=== PATIENT | male | born 1995 | race American Indian/Alaskan Native ===

== ENCOUNTER 2017-06-20 20:18 | Emergency (ER) | payer MEDICAID ==
[2017-06-20 20:18] VITALS: BMI 27.3
[2017-06-20 20:32] VITALS: BP 114/84; PULSE 76; RESP 20; TEMP 98.4; O2SAT 99
[2017-06-20] MEDS ORDERED: Promethazine/Cod 6.25mg-10mg/5ml Syr UD PO STA (21:16)
[2017-06-20] MEDS ORDERED: Amoxicillin-Clav 875-125 mg Tab PO STA (21:16)
--- NOTE | 2017-06-20 21:18 | C.PDOC ---
History Of Present Illness 22 yr old male presents to the ER for evaluation of nasal congestion, sore throat, productive cough with white sputum and chills for the past 2 days. Patient denies fever, headache, drooling, dyspnea, chest pain, SOB, wheezing, abd. pain, N/V/D, UTi sx, denies recent travel or known sick contact. Ambulate to ED for evaluation, not in any apparent distress. Time Seen by Provider: 06/20/17 20:36 Chief Complaint (Nursing): ENT Problem History Per: Patient History/Exam Limitations: None Onset/Duration Of Symptoms: Days (2) Severity: None Past Medical History Reviewed: Historical Data, Nursing Documentation, Vital Signs Vital Signs: Last Vital Signs Temp 98.4 F 06/20/17 20:28 Pulse 76 06/20/17 20:28 Resp 20 06/20/17 20:28 BP 114/84 06/20/17 20:28 Pulse Ox 99 06/20/17 21:30 Family History: States: No Known Family Hx - Social History Hx Tobacco Use: Yes Hx Alcohol Use: Yes Hx Substance Use: Yes - Immunization History Hx Tetanus Toxoid Vaccination: No Hx Influenza Vaccination: No Hx Pneumococcal Vaccination: No Review Of Systems Except As Marked, All Systems Reviewed And Found Negative. Constitutional: Positive for: Chills. Negative for: Fever ENT: Positive for: Nose Congestion, Throat Pain (Sore throat ) Cardiovascular: Negative for: Chest Pain Respiratory: Positive for: Cough (Productive ), Sputum (White ). Negative for: Shortness of Breath Neurological: Negative for: Headache, Dizziness Physical Exam - Physical Exam Appears: Well, Non-toxic, No Acute Distress Skin: Normal Color, Warm, Dry, No Rash Eye(s): bilateral: PERRL Nose: No Flaring, Discharge (B/L nasal congestion with clear rhinorhea) Oral Mucosa: Moist, No Drooling, No Trismus Throat: Erythema (B/L), Exudate (B/L with tonsillar edema.), No Drooling, Other (uvula midline, no edema.) Neck: Supple, Other ((-) meningeal sign) Cardiovascular: Rhythm Regular Respiratory: No Decreased Breath Sounds, No Accessory Muscle Use, No Rales, No Rhonchi, No Stridor, No Wheezing Gastrointestinal/Abdominal: Soft, No Tenderness Back: No CVA Tenderness Extremity: No Pedal Edema Neurological/Psych: Oriented x3, Normal Speech ED Course And Treatment O2 Sat by Pulse Oximetry: 99 (RA) Pulse Ox Interpretation: Normal Progress Note: On re-evaluation, pt is afebrile, hemodynamicaly stable. non- toxic. Tolerate po well in ED. PulseOx 99% RA. ENT: findings c/w acute tonsillitis. uvula midline, no edema.No drooling, no trismus. Neck: supple, (- ) meningeal sign. Lugs: CTA B/L, BS equal B/L. ABd: benign. neuorlogicaly intact. Parent advised and ref. to f/U with PMD in 1-2 days for re-evaluation. return to ED if any worsening or new changes. Medical Decision Making Medical Decision Making: PLAN: * Augmentin PO * Phnergan PO * Prednisone PO Disposition Counseled Patient/Family Regarding: Diagnosis, Need For Followup, Rx Given - Disposition Referrals: Juan Wong MD [Staff Provider] - Disposition: HOME/ ROUTINE Disposition Time: 21:17 Condition: STABLE Additional Instructions: Encourage fluids Take medication as prescribed Follow up with PMD in 2-3 days for re-evaluation. return to Ed if any worsening or new changes. Prescriptions: Amoxicillin/Clavulanate [Augmentin 875 MG-125 MG] 1 tab PO BID #14 tab Benzonatate [Tessalon Perle] 100 mg PO TID #14 capsule Prednisone [Deltasone] 20 mg PO DAILY #3 tablet Instructions: Pharyngitis (ED) Forms: [facility] (Malaysian), Work Excuse - Clinical Impression Clinical Impression: Pharyngitis - PA / PULP MIXER / Resident Statement MD/DO has reviewed & agrees with the documentation as recorded. - Scribe Statement The provider has reviewed the documentation as recorded by the Scribe Winsome Washington All medical record entries made by the Scribe were at my direction and personally dictated by me. I have reviewed the chart and agree that the record accurately reflects my personal performance of the history, physical exam, medical decision making, and the department course for this patient. I have also personally directed, reviewed, and agree with the discharge instructions and disposition.
[2017-06-20] MEDS ORDERED: Amoxicillin-Clav 875-125 mg Tab PO ONE (21:20)
[2017-06-20] MEDS ORDERED: Promethazine/Cod 6.25mg-10mg/5ml Syr UD ONE (21:23)
== END 2017-06-20 21:48 | disposition home or self-care (01) ==
LOC: C.ER 20:18
DX: J02.9 Acute pharyngitis, unspecified (principal)

== ENCOUNTER 2017-07-06 03:14 | Emergency (ER) | payer BC, MEDICAID ==
[2017-07-06 03:14] VITALS: BMI 27.3
[2017-07-06 03:23] VITALS: BP 130/77; PULSE 86; RESP 20; TEMP 97.7; O2SAT 100
[2017-07-06] MEDS ORDERED: Albuterol-Ipratrop 3 mg / 0.5 (3 ml) UD ONE (03:41)
[2017-07-06] MEDS: Albuterol-Ipratrop 3 mg / 0.5 (3 ml) UD IH SCH ×2 (03:50→04:00)
--- NOTE | 2017-07-06 03:56 | C.PDOC ---
History Of Present Illness 22 y/o male c/o intermittent cough, chest congestion, and headache for the past 2 weeks. Patient was seen here 2 weeks prior and was placed on antibiotics and cough medicine. Patient notes symptoms improved, but has reoccurred a week ago. Patient went to see his PMD a week ago who ordered a CXR with normal results. Patient reports cough has now worsened at home with yellowish phlegm and chest tightness. Denies fever, chills, chest pain, ear pain, sick contact, recent travel, OTC meds, or any other complaints. Patient has not taken any meds at this time. Time Seen by Provider: 07/06/17 03:27 Chief Complaint (Nursing): Cough, Cold, Congestion History Per: Patient History/Exam Limitations: no limitations Onset/Duration Of Symptoms: Days (2 weeks) Current Symptoms Are (Timing): Still Present Sick Contacts (Context): None Ear Symptoms: Bilateral: None Severity: Mild Recent travel outside of the [place]: No Additional History Per: Patient Past Medical History Reviewed: Historical Data, Nursing Documentation, Vital Signs Vital Signs: Last Vital Signs Temp 97.7 F 07/06/17 03:20 Pulse 86 07/06/17 03:20 Resp 20 07/06/17 03:20 BP 130/77 07/06/17 03:20 Pulse Ox 100 07/06/17 04:07 Family History: States: Unknown Family Hx - Social History Hx Tobacco Use: Yes Hx Alcohol Use: Yes Hx Substance Use: Yes - Immunization History Hx Tetanus Toxoid Vaccination: No Hx Influenza Vaccination: No Hx Pneumococcal Vaccination: No Review Of Systems Constitutional: Negative for: Fever, Chills ENT: Negative for: Ear Pain, Throat Pain Cardiovascular: Positive for: Other (Chest congesiton). Negative for: Chest Pain Respiratory: Positive for: Cough (with Yellowish phlegm). Negative for: Shortness of Breath Gastrointestinal: Negative for: Nausea, Vomiting, Abdominal Pain Neurological: Positive for: Headache Physical Exam - Physical Exam Appears: Non-toxic, No Acute Distress Skin: Warm, Dry Head: Atraumatic, Normacephalic Eye(s): bilateral: Normal Inspection Ear(s): Bilateral: Normal Oral Mucosa: Moist Throat: Normal, No Erythema Neck: Supple Cardiovascular: Rhythm Regular Respiratory: Decreased Breath Sounds (Minimal), Rhonchi Gastrointestinal/Abdominal: Soft, No Tenderness Neurological/Psych: Oriented x3, Normal Speech, Normal Cognition ED Course And Treatment O2 Sat by Pulse Oximetry: 100 (RA/ Nebulizer treatment) Pulse Ox Interpretation: Normal Progress Note: Impression: 22 y/o male c/o intermittent cough, chest congestion , and headache for the past 2 weeks. Plans: Prednisone, albuterol. Nebulizer, motrin, Benadryl. On reassessment, patient is resting comfortably, and is in no acute distress. Patient was instructed to follow up with physician/clinic in 1-2 days for further evaluation. Disposition - Disposition Disposition: HOME/ ROUTINE Disposition Time: 03:55 Condition: STABLE Additional Instructions: Please follow up with PMD Take meds as directed Increase PO fluids Return to ER if worse Prescriptions: Albuterol HFA [Ventolin HFA 90 mcg/actuation (8 g)] 2 puff IH [id number] #1 puff Cetirizine HCl [Zyrtec] 10 mg PO DAILY #20 tab.rapdis Ibuprofen [Motrin] 600 mg PO Q6H #20 tab predniSONE [Prednisone] 40 mg PO DAILY #10 tab Instructions: Upper Respiratory Infection (ED) Forms: [employer] (Lao) - Clinical Impression Clinical Impression: Upper respiratory infection, Bronchospasm - Scribe Statement The provider has reviewed the documentation as recorded by the Scribleón cox All medical record entries made by the Scribe were at my direction and personally dictated by me. I have reviewed the chart and agree that the record accurately reflects my personal performance of the history, physical exam, medical decision making, and the department course for this patient. I have also personally directed, reviewed, and agree with the discharge instructions and disposition.
== END 2017-07-06 04:25 | disposition home or self-care (01) ==
LOC: C.ER 03:14
DX: J98.01 Acute bronchospasm (principal); J06.9 Acute upper respiratory infection, unspecified; F17.210 Nicotine dependence, cigarettes, uncomplicated

== ENCOUNTER 2017-09-18 15:20 | Emergency (ER) | payer BC, MEDICAID ==
[2017-09-18 15:21] VITALS: BMI 27.3
[2017-09-18 15:25] VITALS: TEMP 97.6; O2SAT 99
--- NOTE | 2017-09-18 15:45 | C.PDOC ---
History Of Present Illness 22 year old male presents to the ED for evaluation of sore throat which began around 4 days ago. Patient also complains of nasal congestion, frontal headache and ear fullness for almost 1 week. Patient notes he took Sudafed and Flonase without relief. He denies fever, chills, and cough at this time. Time Seen by Provider: 09/18/17 15:36 Chief Complaint (Nursing): ENT Problem History Per: Patient History/Exam Limitations: no limitations Onset/Duration Of Symptoms: Days (4) Current Symptoms Are (Timing): Still Present Location Of Pain: Headache Sick Contacts (Context): None Associated Symptoms: Nasal Congestion. denies: Fever, Chills, Cough Ear Symptoms: Bilateral: Ear Fullness Additional History Per: Patient Past Medical History Reviewed: Historical Data, Nursing Documentation, Vital Signs Vital Signs: Last Vital Signs Temp 97.6 F 09/18/17 15:24 Pulse 82 09/18/17 16:03 Resp 20 09/18/17 16:03 BP 123/74 09/18/17 16:03 Pulse Ox 99 09/18/17 16:44 - Medical History PMH: No Chronic Diseases Surgical History: No Surg Hx Family History: States: Unknown Family Hx - Social History Hx Tobacco Use: Yes Hx Alcohol Use: Yes Hx Substance Use: Yes - Immunization History Hx Tetanus Toxoid Vaccination: No Hx Influenza Vaccination: No Hx Pneumococcal Vaccination: No Review Of Systems Constitutional: Negative for: Fever, Chills Eyes: Positive for: Other (ear fullness ) ENT: Positive for: Nose Congestion Respiratory: Negative for: Cough Neurological: Positive for: Headache Physical Exam - Physical Exam Appears: Non-toxic, No Acute Distress Skin: Normal Color, Warm, Dry Head: Atraumatic, Normacephalic Eye(s): bilateral: Normal Inspection Ear(s): Bilateral: Normal Nose: Other (congestion) Oral Mucosa: Moist Throat: Erythema (tonsillar ), No Exudate Neck: Supple Chest: Symmetrical, No Deformity, No Tenderness Cardiovascular: Rhythm Regular, No Murmur Respiratory: Normal Breath Sounds, No Rales, No Rhonchi, No Wheezing Extremity: Normal ROM, Capillary Refill (less than 2 seconds ) Neurological/Psych: Oriented x3, Normal Speech, Normal Cognition Gait: Steady ED Course And Treatment O2 Sat by Pulse Oximetry: 99 (on RA) Pulse Ox Interpretation: Normal Medical Decision Making Medical Decision Making: Patient remained afebrile alert and oriented with stable vital signs during ER evaluation. Patient treated with Amoxicillin for pharyngitis and sinus infection. Patient given follow up instructions. Instructed to return to ER if symptoms worsen or new symptoms arise. Disposition Counseled Patient/Family Regarding: Diagnosis, Need For Followup - Disposition Referrals: Juan Wong MD [Staff Provider] - Disposition: HOME/ ROUTINE Disposition Time: 15:45 Condition: GOOD Additional Instructions: Take antibiotic twice a day for 10 days. Take Tylenol or Motrin alternating every 4-6 hours for Fever 100.4F or higher. Rest and drink plenty of fluids. May use cool mist humidifier or vaporizer in room. Try taking over the counter antihistamine (Claritin, Aysha, Zyrtec) and decongestant (Mucinex or Sudafed) . Follow up with your primary medical doctor or clinic in 1 week for further evaluation. 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 - Scribe Statement The provider has reviewed the documentation as recorded by the Scribe (Shila Quinteros) All medical record entries made by the Scribe were at my direction and personally dictated by me. I have reviewed the chart and agree that the record accurately reflects my personal performance of the history, physical exam, medical decision making, and the department course for this patient. I have also personally directed, reviewed, and agree with the discharge instructions and disposition.
[2017-09-18 16:04] VITALS: BP 123/74; PULSE 82; RESP 20
== END 2017-09-18 16:03 | disposition home or self-care (01) ==
LOC: C.ER 15:20
DX: J02.9 Acute pharyngitis, unspecified (principal); J32.9 Chronic sinusitis, unspecified; F17.210 Nicotine dependence, cigarettes, uncomplicated

== ENCOUNTER 2018-03-28 12:39 | Emergency (ER) | payer BC, MEDICAID ==
[2018-03-28 12:39] VITALS: BMI 27.3
[2018-03-28 12:52] VITALS: BP 120/82; PULSE 75; RESP 18; TEMP 98.2; O2SAT 100
[2018-03-28] MEDS ORDERED: Naproxen 550 mg Tab PO STA (13:24)
[2018-03-28] MEDS ORDERED: Naproxen 550 mg Tab PO ONE (13:33)
--- NOTE | 2018-03-28 13:36 | C.PDOC ---
History Of Present Illness Pt states that a couch fell in his right hand while helping his mother move 2 days ago. Time Seen by Provider: 03/28/18 13:21 Chief Complaint (Nursing): Finger,Hand,&Wrist History Per: Patient Onset/Duration Of Symptoms: Days (2) Current Symptoms Are (Timing): Still Present Quality: "Pain" Severity: Moderate Exacerbating Factor(s): Strenuous Use Of Affected Area Additional History Per: Prior Records Past Medical History Reviewed: Historical Data, Nursing Documentation, Vital Signs Vital Signs: Last Vital Signs Temp 98.2 F 03/28/18 12:49 Pulse 75 03/28/18 12:49 Resp 18 03/28/18 12:49 BP 120/82 03/28/18 12:49 Pulse Ox 100 03/28/18 13:36 - Medical History PMH: No Chronic Diseases Family History: States: Unknown Family Hx - Social History Hx Tobacco Use: Yes Hx Alcohol Use: Yes Hx Substance Use: Yes - Immunization History Hx Tetanus Toxoid Vaccination: No Hx Influenza Vaccination: No Hx Pneumococcal Vaccination: No Review Of Systems Except As Marked, All Systems Reviewed And Found Negative. Constitutional: Negative for: Fever, Weakness Cardiovascular: Negative for: Chest Pain Respiratory: Negative for: Shortness of Breath Gastrointestinal: Negative for: Vomiting, Abdominal Pain Musculoskeletal: Positive for: Hand Pain (right). Negative for: Neck Pain Skin: Negative for: Rash Neurological: Negative for: Weakness, Numbness Physical Exam - Physical Exam Appears: Non-toxic, No Acute Distress Skin: Normal Color, Warm, Dry Head: Atraumatic, Normacephalic Eye(s): bilateral: Normal Inspection, PERRL, EOMI Neck: Normal ROM, Supple Extremity: Normal ROM, Tenderness (right hand, greatest around 2nd metacarpal. ) , Capillary Refill (wnl), Swelling (right hand) Pulses: Right Radial: Normal Neurological/Psych: Oriented x3, Normal Motor, Normal Sensation ED Course And Treatment O2 Sat by Pulse Oximetry: 100 Pulse Ox Interpretation: Normal - Other Rad Right hand x-rays X-Ray: Interpreted by Me, Viewed By Me Interpretation: No acute fx or dislocation. Progress Note: Right hand was placed in velcro cock-up splint by me. Reassessment Condition: Improved Disposition Counseled Patient/Family Regarding: Studies Performed, Diagnosis, Need For Followup, Rx Given - Disposition Referrals: Elamir,Juan, MD [Staff Provider] - Von Walter MD [Staff Provider] - Disposition: HOME/ ROUTINE Disposition Time: 13:41 Condition: STABLE Additional Instructions: Rest. Ice. Elevate. Use splint as instructed. Follow up with your doctor. Follow up with a Hand specialist if symptoms persist. Return to the ER if you develop weakness, numbness, severe pain, worsening of symptoms or if you have any other concerns. Prescriptions: Naproxen [Naprosyn] 1 tab PO BID PRN #20 tab PRN Reason: Pain Instructions: Hand Pain (DC) Forms: [facility] (Arabic) - Clinical Impression Clinical Impression: Contusion of right hand
--- NOTE | 2018-03-28 14:00 | RAD ---
PROCEDURE: Right Hand Radiographs. HISTORY: Pain/swelling s/p injury 2 days ago COMPARISON: None. FINDINGS: BONES: Normal. No fracture. JOINTS: Normal. No osteoarthritic changes. SOFT TISSUES: Normal. OTHER FINDINGS: None. IMPRESSION: Normal right hand radiographs.
== END 2018-03-28 13:50 | disposition home or self-care (01) ==
LOC: C.ER 12:39
DX: S60.221A Contusion of right hand, initial encounter (principal); W20.8XXA Other cause of strike by thrown, projected or falling object, initial encounter; Z72.0 Tobacco use

== ENCOUNTER 2018-11-08 14:22 | Emergency (ER) | payer BC, MEDICAID ==
[2018-11-08 14:22] VITALS: BMI 27.3
[2018-11-08 14:35] VITALS: BP 101/73; PULSE 99; RESP 14; TEMP 98.7; O2SAT 99
--- NOTE | 2018-11-08 14:49 | C.PDOC ---
History Of Present Illness 23 year old male presents to the ED for evaluation of URI symptoms which began two days ago. Patient reports congestion, bilateral ear pain (left>right), decreased hearing, and chest pain associated with cough. Patient denies fever, chills, ear discharge. Time Seen by Provider: 11/08/18 14:41 Chief Complaint (Nursing): Cough, Cold, Congestion History Per: Patient History/Exam Limitations: no limitations Onset/Duration Of Symptoms: Days (2) Current Symptoms Are (Timing): Still Present Associated Symptoms: Cough. denies: Fever, Chills Ear Symptoms: Bilateral: Ear Pain Additional History Per: Patient Past Medical History Reviewed: Historical Data, Nursing Documentation, Vital Signs Vital Signs: Last Vital Signs Temp 98.7 F 11/08/18 14:32 Pulse 99 H 11/08/18 14:32 Resp 14 11/08/18 14:32 BP 101/73 11/08/18 14:32 Pulse Ox 99 11/08/18 14:32 - Medical History PMH: No Chronic Diseases Surgical History: No Surg Hx Family History: States: Unknown Family Hx - Social History Hx Tobacco Use: Yes Hx Alcohol Use: Yes Hx Substance Use: Yes - Immunization History Hx Tetanus Toxoid Vaccination: No Hx Influenza Vaccination: No Hx Pneumococcal Vaccination: No Review Of Systems Constitutional: Negative for: Fever, Chills ENT: Positive for: Ear Pain, Nose Congestion. Negative for: Ear Discharge Physical Exam - Physical Exam Appears: Non-toxic, No Acute Distress Skin: Normal Color, Warm, Dry Head: Atraumatic, Normacephalic Eye(s): bilateral: Normal Inspection Ear(s): Bilateral: Other (fluid behind right TM, no erythema. Left TM with pus behind it) Nose: Other (bilateral turbinates are enlarged and pink ) Oral Mucosa: Moist Neck: Supple Chest: Symmetrical, No Deformity, No Tenderness Cardiovascular: Rhythm Regular, No Murmur Respiratory: Normal Breath Sounds, No Rales, No Rhonchi, No Wheezing Extremity: Normal ROM, Capillary Refill (less than 2 seconds ) Neurological/Psych: Oriented x3, Normal Speech, Normal Cognition ED Course And Treatment O2 Sat by Pulse Oximetry: 99 (on RA) Pulse Ox Interpretation: Normal Disposition Counseled Patient/Family Regarding: Studies Performed, Diagnosis, Need For Followup - Disposition Referrals: Juan Wong MD [Staff Provider] - Disposition: HOME/ ROUTINE Disposition Time: 14:49 Condition: GOOD Additional Instructions: BHARTI WEBB, thank you for letting us take care of you today. Your provider was Elin Rodriguez MD and you were treated for CHEST PAIN/COUGHING. The emergency medical care you received today was directed at your acute symptoms. If you were prescribed any medication, please fill it and take as directed. It may take several days for your symptoms to resolve. Return to the Emergency Department if your symptoms worsen, do not improve, or if you have any other problems. Please contact your doctor in 1-2 days for follow up appointment. Bring any paperwork you were given at discharge with you along with any medications you are taking to your follow up visit. Our treatment cannot replace ongoing medical care by a primary care provider outside of the emergency department. Thank you for allowing the [facility] team to be part of your care today. Prescriptions: Amoxicillin [Amoxil 500 mg Cap] 500 mg PO TID #30 cap Instructions: Ear Infections (Otitis Media) (DC), Upper Respiratory Infection (ED) Forms: [employer] (Mongolian), General Discharge Instructions - POA Present On Arrival: None - Clinical Impression Clinical Impression: Upper respiratory infection, Otitis media - Scribe Statement The provider has reviewed the documentation as recorded by the Scribe (Shila Quinteros) Provider Attestation: All medical record entries made by the Scribe were at my direction and personally dictated by me. I have reviewed the chart and agree that the record accurately reflects my personal performance of the history, physical exam, [facility] decision making, and the department course for this patient. I have also personally directed, reviewed, and agree with the discharge instructions and disposition.
== END 2018-11-08 15:13 | disposition home or self-care (01) ==
LOC: C.ER 14:22
DX: J06.9 Acute upper respiratory infection, unspecified (principal); H66.92 Otitis media, unspecified, left ear

== ENCOUNTER 2019-03-27 05:47 | Emergency (ER) | payer BC, MEDICAID ==
[2019-03-27 05:48] VITALS: BMI 27.3
[2019-03-27 05:59] VITALS: BP 114/77; PULSE 86; RESP 17; TEMP 98.7; O2SAT 97
--- NOTE | 2019-03-27 06:04 | C.PDOC ---
History Of Present Illness 23 year old male presents with sore throat since yesterday. Patient took ibuprofen 600 which helped a little but states he had chills overnight and throat pain worsened. He took some cough syrup with no relief. Denies fever or other complaints. Time Seen by Provider: 03/27/19 06:01 Chief Complaint (Nursing): Cough, Cold, Congestion History Per: Patient History/Exam Limitations: no limitations Onset/Duration Of Symptoms: Hrs Current Symptoms Are (Timing): Still Present Location Of Pain: Throat Sick Contacts (Context): None Associated Symptoms: Chills, Sore Throat. denies: Fever Recent travel outside of the [place]: No Past Medical History Reviewed: Historical Data, Nursing Documentation, Vital Signs Vital Signs: Last Vital Signs Temp 98.7 F 03/27/19 05:55 Pulse 86 03/27/19 05:55 Resp 17 03/27/19 05:55 BP 114/77 03/27/19 05:55 Pulse Ox 97 03/27/19 05:55 Primary Care Provider: Juan Wong - Medical History PMH: Denies: Chronic Kidney Disease Family History: States: Unknown Family Hx - Social History Hx Tobacco Use: Yes Hx Alcohol Use: Yes Hx Substance Use: Yes (MARIJUANA) - Immunization History Hx Tetanus Toxoid Vaccination: No Hx Influenza Vaccination: No Hx Pneumococcal Vaccination: No Review Of Systems Constitutional: Positive for: Chills. Negative for: Fever ENT: Positive for: Throat Pain Skin: Negative for: Rash Physical Exam - Physical Exam Appears: Well, Non-toxic, No Acute Distress Skin: Normal Color, Warm Head: Atraumatic, Normacephalic Eye(s): bilateral: Normal Inspection Ear(s): Bilateral: Normal Nose: Other (Enlarged turbinates, left greater than right.) Oral Mucosa: Moist Throat: Other (Enlarged tonsils kissing uvula. Patent airway. No muffled voice. Able to swallow secretions.) Neck: Normal ROM, Supple Respiratory: Normal Breath Sounds, No Accessory Muscle Use, Other (Normal inspiratory effort) Neurological/Psych: Oriented x3, Normal Speech ED Course And Treatment O2 Sat by Pulse Oximetry: 97 (room air) Pulse Ox Interpretation: Normal Medical Decision Making Medical Decision Making: Will treat for tonsillitis. Disposition Counseled Patient/Family Regarding: Diagnosis, Need For Followup, Rx Given - Disposition Disposition: HOME/ ROUTINE Disposition Time: 06:03 Condition: STABLE Prescriptions: Amoxicillin 500 mg PO TID #15 tablet Cetirizine HCl/Pseudoephedrine [Zyrtec-D Tablet] 1 each PO DAILY #14 tab.er.12h Instructions: Sore Throat, Adult (DC), Cough, Runny Nose, and the Common Cold (DC) Forms: General Discharge Instructions, [facility] (Tajik), Work Excuse - Clinical Impression Clinical Impression: Acute tonsillitis, Upper respiratory infection - PA / DATABASE ADMINISTRATION MANAGER / Resident Statement MD/DO has reviewed & agrees with the documentation as recorded. - Scribe Statement The provider has reviewed the documentation as recorded by the Scribleón Walls All medical record entries made by the Manfredibleón were at my direction and personally dictated by me. I have reviewed the chart and agree that the record accurately reflects my personal performance of the history, physical exam, medical decision making, and the department course for this patient. I have also personally directed, reviewed, and agree with the discharge instructions and disposition.
[2019-03-27] MEDS ORDERED: Dexamethasone 4 mg/1 ml ONE (06:11)
== END 2019-03-27 06:17 | disposition home or self-care (01) ==
LOC: C.ER 05:47
DX: J03.90 Acute tonsillitis, unspecified (principal)
CPT/HCPCS: 96372; 99283; J1100